=== PATIENT | male | born 1940 | race Caucasian/White ===

== ENCOUNTER → 2018-11-19 | Outpatient (CLI) | payer MEDICARE, OTHER ==
--- NOTE | 2018-11-19 14:27 | REP ---
Clinical: COPD with acute exacerbation. Technique: PA and lateral. Comparison: 07/04/2016. Findings: Mediastinum and cardiac silhouette are within normal limits and stable. Lung burton demonstrate diffuse chronic interstitial changes and scattered fibrosis. Subtle superimposed right lower lobe atelectasis/infiltrate cannot be excluded. No significant effusion. No pneumothorax. Skeletal structures intact. Impression: Chronic-appearing changes. Cannot exclude subtle superimposed right lower lobe atelectasis/early infiltrate. Electronically Signed by Morris Mora MD 11/19/2018 02:19 P
== END ==
LOC: M SMT 10:23
PROVIDERS: ATTEND Physician Assistant
DX: J44.1 Chronic obstructive pulmonary disease with (acute) exacerbation (principal)

== ENCOUNTER → 2019-01-08 | Outpatient (REF) | payer MEDICARE, OTHER ==
[2019-01-08 15:53] LABS: BASO # 0.1 10^3/uL (0.0-0.2); BASO % 0.6 % (0.0-1.0); EOS # 0.2 10^3/uL (0.0-0.50); EOS % 1.9 % (0.0-3.0); HEMATOCRIT 42.7 % (42.0-52.0); HEMOGLOBIN 13.8 g/dl (13.5-17.5); LYMPH # 1.5 10^3/uL (1.5-4.5); LYMPH % 13.2 % (24.0-44.0); MEAN CORPUSCULAR HEMOGLOBIN 36.5 pg (27.0-33.0); MEAN CORPUSCULAR HGB CONC 32.3 g/dl (32.0-36.5); MONO # 0.8 10^3/uL (0.0-0.8); MONO % 7.4 % (0.0-5.0); NEUTROPHILS # 8.3 10^3/uL (1.8-7.7); NEUTROPHILS % 75.6 % (36.0-66.0); PLATELET COUNT, AUTOMATED 464 10^3/uL (150-450); RED BLOOD COUNT 3.78 10^6/uL (4.30-6.10)
[2019-01-08 15:59] LABS: ALBUMIN 3.4 GM/DL (3.2-5.2); BILIRUBIN,TOTAL 0.5 MG/DL (0.2-1.0); C REACTIVE PROTEIN QUANTITATIV 7.19 MG/DL (0.00-0.30); CALCIUM LEVEL 9.6 MG/DL (8.8-10.2); CHOLESTEROL RISK RATIO 2.509 (<5); CREATININE FOR GFR 2.07 MG/DL (0.70-1.30); GLOMERULAR FILTRATION RATE 33.3 (>42); MAGNESIUM LEVEL 2.1 MG/DL (1.8-2.4); POTASSIUM SERUM 4.8 MEQ/L (3.5-5.1); TOTAL PROTEIN 7.2 GM/DL (6.4-8.2); URIC ACID 5.9 MG/DL (3.5-7.2)
[2019-01-08 16:07] LABS: PTH INTACT 86.8 PG/ML (18.5-88.0)
[2019-01-08 16:09] LABS: HEMOGLOBIN A1c 6.2 %
[2019-01-08 16:35] LABS: ERYTHROCYTE SEDIMENTATION RATE 81 mm/hr (0-20)
== END ==
LOC: M SFHCPLAZ 12:15
PROVIDERS: ATTEND Internal Medicine
DX: I12.9 Hypertensive chronic kidney disease with stage 1 through stage 4 chronic kidney disease, or unspecified chronic kidney disease (principal); M10.9 Gout, unspecified; E78.00 Pure hypercholesterolemia, unspecified; R73.01 Impaired fasting glucose; N18.3 Chronic kidney disease, stage 3 (moderate); D47.3 Essential (hemorrhagic) thrombocythemia; M06.9 Rheumatoid arthritis, unspecified
CPT/HCPCS: 36415; 80053; 80061; 83036; 83735; 83970; 84550; 85025; 85652; 86140; G0463

== ENCOUNTER → 2021-01-14 | Outpatient (CLI) | payer MEDICARE, OTHER ==
--- NOTE | 2021-01-14 16:16 | REPPI ---
INDICATION: R06.02 SOB R05 PRODUCTIVE COUGH COMPARISON: 11/19/2018, 07/04/2016. TECHNIQUE: PA/Lateral FINDINGS: Lungs: There is bibasilar interstitial fibrotic change which appears similar to the prior study. No consolidation is seen. Heart: Normal in size. Mediastinum: Mediastinal silhouette unremarkable. Pleural angles: There is a small right pleural effusion.. Bones and soft tissues: There are mild degenerative changes of the spine. There is a prosthetic heart valve. IMPRESSION: Stable chronic interstitial fibrosis. Small right pleural effusion. <Electronically signed by Gideon Hayden > 01/14/21 [id number]
== END ==
LOC: M PLAIMG 15:33
PROVIDERS: ATTEND Physician Assistant
DX: J90 Pleural effusion, not elsewhere classified (principal); R06.02 Shortness of breath; R05 Cough; Z95.2 Presence of prosthetic heart valve
CPT/HCPCS: 71046; G0463

== ENCOUNTER → 2021-02-25 | Outpatient (CLI) | payer MEDICARE, OTHER ==
--- NOTE | 2021-02-25 08:41 | REP ---
INDICATION: BAINS CHEST DISCOMFORT XRAY FIRST. COMPARISON: Multiple latest 01/14/2021 TECHNIQUE: PA and lateral FINDINGS: The cardiomediastinal silhouette is unchanged. Chronic bibasilar fibrotic changes are again noted. There is chronic bilateral CP angle blunting. There is a new patchy opacity in the left lung base seen best on the lateral view posteriorly. The osseous structures are stable. IMPRESSION: New lung base opacity as described above acute pneumonia superimposed upon chronic change cannot be ruled out. Follow-up is suggested. <Electronically signed by Marvin Ovalles > 02/25/21 [id number]
--- NOTE | 2021-02-25 09:44 | REP ---
INDICATION: BAINS CHEST DISCOMFORT XRAY FIRST. COMPARISON: Comparison is made with today's chest x-ray.. TECHNIQUE: 1.0 mCi of technetium 99m DTPA aerosol is utilized for the ventilation study and is followed by a 5.4 mCi dose of intravenous technetium 99m MAA for the perfusion study. A sequence of 8 planar images are acquired for each portion of the study. FINDINGS: There is very patchy distribution of ventilatory tracer with some central bronchial deposition present bilaterally, right more so than left. The this is consistent with COPD. There are multiple regions of poor ventilation. The perfusion study shows heterogeneous uptake as well. There are multiple matched perfusion ventilation defects including right upper lobe, lingular segment of the left upper lobe and posteriorly and superiorly on the left. No mismatch defect is seen. IMPRESSION: Very patchy radiotracer distribution on both ventilation and perfusion study consistent with advanced COPD. Multiple matched ventilation perfusion defects. No mismatched defect. Low to intermediate probability for pulmonary embolus. <Electronically signed by Sacha Meadows > 02/25/21 [id number]
== END ==
LOC: M RAD 07:42
PROVIDERS: ATTEND Internal Medicine Cardiovascular Disease
DX: R07.89 Other chest pain (principal); R06.00 Dyspnea, unspecified
CPT/HCPCS: 71046; 78582; A9540; A9567

== ENCOUNTER 2021-04-18 14:48 | Inpatient (IN) | payer MEDICARE, OTHER ==
[~2021-04-18] VITALS: Ht 180.3 cm; Wt 77.3 kg
[2021-04-18] MEDS ORDERED: OMEP40CA4 PO (16:06)
[2021-04-18] MEDS ORDERED: ASPI-226 PO (16:06)
[2021-04-18] MEDS ORDERED: ALLO100T PO (16:06)
[2021-04-18] MEDS ORDERED: ATOR1TAB21 PO (16:06)
[2021-04-18] MEDS ORDERED: CLOP75TA2 PO (16:06)
[2021-04-18] MEDS ORDERED: HYDR500C3 PO (16:06)
[2021-04-18] MEDS ORDERED: BREO1INH3 INH (16:06)
[2021-04-18] MEDS ORDERED: ALBU83IN NEB (16:06)
[2021-04-18] MEDS ORDERED: ACET650T61 PO (16:06)
[2021-04-18] MEDS ORDERED: TAMS1CAP17 PO (16:06)
[2021-04-18] MEDS ORDERED: SPIR1CAP INH (16:06)
--- NOTE | 2021-04-18 16:29 | REP ---
INDICATION: Altered Mental Status COMPARISON: None. TECHNIQUE: Axial noncontrast images from the skull base to the thoracic inlet with coronal reformations. This CT examination was performed using the following dose reduction techniques: Automated exposure control, adjustment of mA and/or kv according to the patient's size, and use of iterative reconstruction technique. FINDINGS: Atrophy with periventricular leukomalacia and microvascular ischemic changes are appreciated. There is an asymmetric 3.6 cm low-density area along the medial aspect of the left parieto-occipital lobe which is nonspecific. Differential diagnosis includes evolving encephalomalacia related to old infarction, subacute infarction, and less likely mass lesion. No significant associated vasogenic edema or mass effect noted. The ventricles and sulci are symmetric. Hayden-white differentiation is otherwise maintained. There is no evidence for acute intracranial hemorrhage. No extra-axial fluid collection. Calvarium is intact. Paranasal sinuses and mastoid air cells are clear. IMPRESSION: Asymmetric low-density area in the posterior medial left hemisphere as described above. Differential diagnosis includes evolving encephalomalacia related to old infarction, subacute infarction, and less likely mass. Correlation with physical examination is recommended. Consider noncontrast MRI for further investigation. <Electronically signed by Morris Mora > 04/18/21 [id number]
[2021-04-18 16:36] LABS: BASO % 0.6 % (0.0-1.0); EOS # 0.1 10^3/uL (0.0-0.5); HEMATOCRIT 34.6 % (42.0-52.0); HEMOGLOBIN 10.6 g/dl (13.5-17.5); LYMPH # 1.1 10^3/uL (1.5-5.0); LYMPH % 16.4 % (24.0-44.0); MEAN CORPUSCULAR HGB CONC 30.6 g/dl (32.0-36.5); MONO # 0.5 10^3/uL (0.0-0.8); MONO % 7.6 % (2.0-8.0); PLATELET COUNT, AUTOMATED 511 10^3/uL (150-450); RED BLOOD COUNT 3.53 10^6/uL (4.30-6.10); WHITE BLOOD COUNT 6.9 10^3/uL (4.0-10.0)
--- NOTE | 2021-04-18 16:38 | REP ---
INDICATION: ALTERED MENTAL STATUS COMPARISON: 02/25/2021 TECHNIQUE: PA and lateral. FINDINGS: Cardiac silhouette is normal evidence for prior aortic valve repair noted. Lung burton demonstrate chronic emphysematous changes with bibasilar scarring. Subtle superimposed lower lobe cannot be excluded. No pneumothorax. Skeletal structures are intact. Atelectasis IMPRESSION: Chronic appearing changes. Cannot exclude subtle superimposed basilar atelectasis. <Electronically signed by Morris Mora > 04/18/21 [id number]
[2021-04-18 17:05] LABS: ACETAMINOPHEN LEVEL < 2.0 UG/ML (10.0-30.0); ALBUMIN 2.8 GM/DL (3.2-5.2); ALT/SGPT 13 U/L (12-78); BILIRUBIN,DIRECT 0.1 MG/DL (0.0-0.2); BILIRUBIN,TOTAL 0.3 MG/DL (0.2-1.0); BLOOD UREA NITROGEN 31 MG/DL (7-18); CALCIUM LEVEL 8.9 MG/DL (8.8-10.2); CARBON DIOXIDE LEVEL 27 MEQ/L (21-32); CHLORIDE LEVEL 109 MEQ/L (98-107); CREATININE FOR GFR 1.79 MG/DL (0.70-1.30); ETHYL ALCOHOL (ETHANOL) < 0.003 % (0.000-0.010); GLOMERULAR FILTRATION RATE 39.2 (>42); GLUCOSE, FASTING 92 MG/DL (70-100); POTASSIUM SERUM 4.5 MEQ/L (3.5-5.1); SALICYLATE LEVEL < 1.7 MG/DL (5.0-30.0); SODIUM LEVEL 142 MEQ/L (136-145); TOTAL PROTEIN 6.6 GM/DL (6.4-8.2)
[2021-04-18 17:55] LABS: ERYTHROCYTE SEDIMENTATION RATE 61 mm/hr (0-20)
[2021-04-18] MEDS ORDERED: ACETAMINOPHEN TAB 650MG DOSE (2X325MG) PO PRN (18:00)
--- NOTE | 2021-04-18 18:32 | HPEPDOC ---
[facility] Medical History & Physical Date of Admission Apr 18, 2021 Date of Service: Apr 18, 2021 Primary Care Physician: Samm Andre Attending Physician: PRASANNA ZAVALA DO History and Physical CHIEF COMPLAINT: Visual loss HISTORY OF PRESENT ILLNESS: Patient is a 80-year-old male presented to emergency department after his vision went black yesterday. Patient states that yesterday his vision went black and he is having difficulty seeing. Patient states that this is been getting better. Patient states that his vision went black in both eyes. Patient was stating that he had been recently seen by the retinal specialist in [facility] and was diagnosed with macular dystrophy. Patient was hospitalized from 03/04/2021 to 03/14/2021 at [facility] in the beginning and middle part of February 2021. Patient was found to have group G strep bacteremia at that time. 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 Patient had an MRI performed while he was at [facility] which was reported to show multiple small acute/subacute infarcts supra and infratentorially and multiple vascular territories consistent with embolic phenomenon. Patient was treated with 6 weeks of ceftriaxone which ended on Sunday. Patient had his PICC line removed on Sunday. Patient states that he was otherwise doing well up until Sunday when the visual loss happened. Patient had recently stopped steroid eyedrops from an live games dealer in [facility]. Patient does not complain of any other neurologic symptoms at this time such as weakness, numbness, speech difficulties or word finding difficulties. Patient does not have any other complaints at this time. PAST MEDICAL HISTORY: 1. Rheumatoid arthritis. 2. Gout. 3. Gastroesophageal reflux disorder. 4. Hypertension 5. MICHELLE 6. COPD 7. Incisional hernia 8. Hypercholesterolemia 9. Chronic kidney disease stage III 10. Valvular heart disease 11. Thrombocytosis PAST SURGICAL HISTORY: 1. Bifemoral bypass in 2010. 2. Right cataract in 2016. 3. Left cataract in 2016. 4. TAVR at [facility] in 2019 SOCIAL HISTORY: Patient lives at home with his and used to work in the [employer]. Patient denies any smoking, or illicit drug use. Patient does occasionally use alcohol. FAMILY HISTORY: Father of unknown cause at age 59. Mother of breast cancer at age 68. ALLERGIES: Please see below. REVIEW OF SYSTEMS: General: Patient denies fevers HEENT: Patient reports a blackening of his vision which has improved. Patient denies headaches Cardiovascular: Patient denies chest pain Respiratory: Patient denies shortness of breath, cough GI: Patient denies abdominal pain, nausea, vomiting, diarrhea : Patient denies increased frequency or pain with urination Extremities: Patient denies swelling or pain in extremities Neurological: Patient denies numbness or tingling in legs Skin: Patient denies any new rashes or lesions. Hematologic: Patient denies any easy bruising. Lymphatic: Patient denies any lumps lumps or bumps in neck, axilla, or groin HOME MEDICATIONS: Please see below. PHYSICAL EXAMINATION: VITAL SIGNS: Temperature 98.5, pulse 90, respiratory rate 18, blood pressure 166/77, pulse oximetry 93% on room air. General: Alert and oriented male patient who was laying in bed when I walked in the room. Patient not appear to be in any acute distress. HEENT: Normocephalic, atraumatic, moist mucous membranes. Neck: No lymphadenopathy or thyromegaly Cardiac: Regular rate and rhythm, no murmurs, normal S1, normal S2 Pulm: Clear to auscultation bilaterally. No wheezes, rhonchi, rales Abd: Nondistended, nontender to palpation, normal bowel sounds Ext: No edema bilateral lower extremities Neuro: Patient is 5/5 strength in all myotomes of the upper and lower extremities bilaterally. Patient reports equal sensation to light touch in upper and lower extremity dermatomes tested. Cranial nerves III through XII intact bilaterally. [id number]-[id number] testing reveals the patient was slow to find the finger during the testing of the right visual hemisphere and was easily able to find finger during testing of the left visual hemisphere. Patient's proprioception and touching his nose was intact. Skin: Skin of the head, neck, upper and lower extremities, abdomen and back were examined not show any evidence of rash or wounds LABORATORY DATA: See below. IMAGING: Chest x-ray performed on 04/18/2021 is reported to show chronic. Changes. Cannot exclude subtle superimposed basilar atelectasis. CT of the head without contrast performed on 04/18/2021 was reported to show asymmetric low-density area in the posterior medial left hemisphere that measures 3.6 cm along the medial aspect of the left parietal occipital lobe which is nonspecific. Differential diagnosis includes evolving encephalomalacia related to old infarct, subacute infarction, and less likely mass lesion. No significant associated vasogenic edema or mass-effect noted. Correlation with physical exam is recommended. Consider noncontrast MRI for further investigation MICROBIOLOGY: Please see below. ASSESSMENT: 80-year-old male who presents the emergency department with visual loss with a CT finding of a 3.6 cm mass in the posterior parietal/occipital lobe who was recently found to have embolic strokes at [facility] who will be admitted to the hospital for further work-up for CVA. . PLAN: 1. Visual loss. This is concerning for a CVA. Patient has been seen by ophthalmology and retinal specialist in the recent past. Patient was diagnosed with macular dystrophy according the patient's . In review of the patient's notes from [facility] (on the patient's paper chart) he had embolic phenomenon to the brain in the middle of February. This was thought to be secondary to endocarditis which was not able to be visualized on REYES as the working theory by [facility]'s infectious disease provider was that the patient had showered the brain with emboli from the vegetation. I spoke with Dr. Owens who will see the patient tomorrow. MRI of the brain has been ordered. ESR has been ordered. Every 4 neurochecks have been ordered. Patient is on aspirin and Plavix. PT and OT have also been ordered. 2. Recent group G strep bacteremia. Patient finished his course of ceftriaxone on 04/15/2021 and had his PICC line removed. Blood cultures have been ordered. Patient does not have a leukocytosis at this time. 3. Hypertension. At this time, we will hold antihypertensive medications to allow permissive hypertension due to the possible CVA. We will continue to monitor the patient's blood pressure closely. 4. COPD. Patient does not appear to be in exacerbation at this time. Continue home medications. 5. Hyperlipidemia. Continue patient's home medications. 6. Cerebrovascular disease. Continue aspirin and Plavix. 7. Carotid artery stenosis. Patient is at ultrasound of the carotid performed at [facility] showed occlusion of the left internal carotid artery. They recommended CT angiogram of the neck however, patient has chronic kidney disease and was unable to get this done. Patient states he will be following up with his immunopathologist. 8. Chronic kidney disease stage III. Creatinine is at baseline. Avoid nephrotoxic agents and continue to monitor. 9. DVT prophylaxis: Teds and sequentials 10. CODE STATUS: Full code Disposition: Patient will be admitted to medical surgical floor with telemetry. Patient expected to stay at least 2 midnights. Vital Signs Vital Signs Date Time Temp Pulse Resp B/P (MAP) Pulse Ox O2 Delivery O2 Flow Rate FiO2 04/18/21 16:35 166/77 (106) 04/18/21 16:33 103 04/18/21 16:18 93 04/18/21 14:49 98.5 18 Room Air Laboratory Data Labs 24H Laboratory Tests 2 04/18/21 16:21: Immature Granulocyte % (Auto) 0.4, Neutrophils (%) (Auto) 73.0H, Lymphocytes (%) (Auto) 16.4L, Monocytes (%) (Auto) 7.6, Eosinophils (%) (Auto) 2.0, Basophils (%) (Auto) 0.6, Neutrophils # (Auto) 5.0, Lymphocytes # (Auto) 1.1L, Monocytes # (Auto) 0.5, Eosinophils # (Auto) 0.1, Basophils # (Auto) 0.0, Nucleated Red Blood Cells % (auto) 0.0, Erythrocyte Sedimentation Rate 61H, Anion Gap 6L, Glomerular Filtration Rate 39.2L, Calcium Level 8.9, Total Bilirubin 0.3, Direct Bilirubin 0.1, Aspartate Amino Transf (AST/SGOT) 13, Alanine Aminotransferase (ALT/SGPT) 13, Alkaline Phosphatase 96, Ammonia 13, Total Protein 6.6, Albumin 2.8L, Albumin/Globulin Ratio 0.7, Thyroid Stimulating Hormone (TSH) 1.050, Salicylates Level < 1.7L, Acetaminophen Level < 2.0L, Ethyl Alcohol Level < 0.00 3 CBC/BMP Laboratory Tests 04/18/21 16:21 Home Medications Scheduled Acetaminophen (Tylenol Arthritis) 650 Mg Tablet.er, 650 MG PO Q8H Tiotropium [place] (Spiriva) 18 Mcg Cap.w.dev, 1 CAP INH DAILY Scheduled PRN Albuterol Sulf (Albuterol Sulfate) 2.5 Mg/3 Ml Vial.neb, 1 VIAL NEB Q4HP PRN for wheezing Miscellaneous Medications Allopurinol (Allopurinol) 100 Mg Tablet Aspirin (Aspirin EC) 81 Mg Tablet. Atorvastatin Calcium (Atorvastatin Calcium) 20 Mg Tablet Clopidogrel Bisulfate (Clopidogrel) 75 Mg Tablet Fluticasone/Vilanterol (Breo Ellipta 200-25 Mcg INH) 1 Each Blst.w.dev Hydroxyurea (Hydroxyurea) 500 Mg Capsule Omeprazole (Omeprazole) 40 Mg Capsule. Tamsulosin Hcl (Tamsulosin HCl) 0.4 Mg Capsule Allergies Coded Allergies: ether (Verified Allergy, Unknown, 04/18/21) shellfish derived (Verified Allergy, Unknown, 04/18/21) A-FIB/CHADSVASC A-FIB History Current/History of A-Fib/PAF?: No PRASANNA ZAVALA DO Apr 18, 2021 18:32
[2021-04-18 18:56] LABS: RSV AMPLIFICATION NEGATIVE (NEGATIVE)
[2021-04-18] MEDS ORDERED: PREDOPD OD (19:13)
[2021-04-18] MEDS ORDERED: HOME MED LIST COMPLETE! XX SCH (19:35)
--- NOTE | 2021-04-18 20:13 | REPVR ---
PROCEDURE INFORMATION: Exam: MR Head Without Contrast Exam date and time: 04/18/2021 7:50 PM Age: 80 years old Clinical indication: Visual disturbance; Additional info: CVA TECHNIQUE: Imaging protocol: MR of the head without contrast. COMPARISON: CT Head without contrast 04/18/2021 4:03 PM FINDINGS: Brain: Acute infarct in the left occipital lobe measuring 4.4 x 3.2 cm. Acute infarct in the left thalamus measuring 1 x 0.7 cm. Cerebral ventricles: Normal. No ventriculomegaly. Bones/joints: Unremarkable. Paranasal sinuses: Normal as visualized. No acute sinusitis. Mastoid air cells: Normal as visualized. No mastoid effusion. Orbital cavity: Bilateral cataract surgery. Soft tissues: Unremarkable. IMPRESSION: Acute infarct in the left occipital lobe measuring 4.4 x 3.2 cm. Acute infarct in the left thalamus measuring 1 x 0.7 cm. Electronically signed by: Apollo Castellon On 04/18/2021 20:13:30 PM
[2021-04-18 21:00] VITALS: BP 157/83
--- NOTE | 2021-04-18 21:44 | ECGEPIP ---
[facility] - ED Test Date: 2021-04-18 Pat Name: BIN WILKES Department: Room: - Gender: Male [employer] Instructor: MELVIN : 1940 Requested By: JUAN CHAKRABORTY Order Number: [id number] Reading MD: Matt Hsu Measurements Intervals Mccracken Rate: 88 P: 36 HI: 140 QRS: -30 QRSD: 134 T: 156 QT: 400 QTc: 484 Interpretive Statements Normal sinus rhythm Left axis deviation Left bundle branch block NO PRIORS FOR COMPARISON Electronically Signed on 04-18-2021 21:43:43 EDT by Matt Hsu
[2021-04-19 05:43] LABS: HEMATOCRIT 31.5 % (42.0-52.0); HEMOGLOBIN 9.9 g/dl (13.5-17.5); MEAN CORPUSCULAR HEMOGLOBIN 29.9 pg (27.0-33.0); MEAN CORPUSCULAR HGB CONC 31.4 g/dl (32.0-36.5); MEAN CORPUSCULAR VOLUME 95.2 fl (80.0-96.0); PLATELET COUNT, AUTOMATED 461 10^3/uL (150-450); RED BLOOD COUNT 3.31 10^6/uL (4.30-6.10); WHITE BLOOD COUNT 7.1 10^3/uL (4.0-10.0)
[2021-04-19 06:00] VITALS: BP 147/75
[2021-04-19 06:05] LABS: CALCIUM LEVEL 8.1 MG/DL (8.8-10.2); CREATININE FOR GFR 1.76 MG/DL (0.70-1.30); MAGNESIUM LEVEL 2.1 MG/DL (1.8-2.4); POTASSIUM SERUM 4.5 MEQ/L (3.5-5.1)
[2021-04-19] MEDS: TIOTROPIUM INHALER/CAPSULE (SPIRIVA) INH SCH (08:00)
[2021-04-19] MEDS: CLOPIDOGREL 75 MG TAB PO SCH (08:08)
[2021-04-19] MEDS: ASPIRIN 81MG ENTERIC TABLET PO SCH (08:08)
[2021-04-19] MEDS: OMEPRAZOLE 20 MG CAP PO SCH (08:08)
[2021-04-19] MEDS: allopurinoL 100 MG TAB PO SCH (08:09)
[2021-04-19] MEDS: HYDROXYUREA 500 MG CAP PO SCH (08:22)
[2021-04-19 08:38] LABS: C REACTIVE PROTEIN QUANTITATIV 3.67 MG/DL (0.00-0.30)
[2021-04-19] MEDS: ADVAIR HFA 230/21MCG INHALER INH SCH ×2 (09:06→19:31)
[2021-04-19 14:00] VITALS: BP 136/67
--- NOTE | 2021-04-19 18:07 | IPNPDOC ---
Subjective Date Seen The patient was seen on 04/19/21. Subjective Chief Complaint/HPI Mr. Jones is a 80 year old male with history of CVA, recent group G strep bacteremia completed antibiotics, and carotid artery stenosis who presents with vision loss. This morning, he feels that his vision has improved, but not yet at baseline. Still hazy at the edges. Otherwise denies chest pain or dyspnea. Objective Physical Examination General Exam: Positive: Alert, Cooperative Eye Exam: Negative: Sclera icteric Neck Exam: Positive: Supple Chest Exam: Positive: Clear to auscultation Heart Exam: Positive: Rate Normal, Regular Rhythm Abdomen Exam: Positive: Normal bowel sounds, Soft; Negative: Tenderness Neuro Exam: Positive: Normal Speech Psych Exam: Positive: Mental status NL, Mood NL Assessment /Plan Assessment Mr. Jones is a 80 year old male with history of CVA, recent group G strep ba cteremia completed antibiotics, and carotid artery stenosis who presents with vision loss. Vision has improved, but not at baseline. MRI head demonstrates acute infarct of the left occipital and left thalamus. Will order Echocardiogram and MRA of the head and carotids. Unable to do contrast for CT angiogram. Plan/VTE VTE Prophylaxis Ordered?: Yes Plan 1. Acute left CVA with vision loss -Recently had embolic phenomenon in middle of February at dawn -Suspected endocarditis, but not visualized on REYES. Patient completed antibiotic course on 04/15/21 -Will order echocardiogram with bubble study, MRA of the head and carotids as patient cannot do CT angio due to renal function -Discussed case with neurology. Continue with atorvastatink, aspirin, and Plavix. Concern for place in the vertebral or basilar due to location of stroke -Monitor telemetry for atrial fibrillation. May explain why recent CVA 2. Hypertension -Hold antihypertensives to allow for permissive hypertension -Will need at least 48 hours of permissive hypertension 3. COPD -Stable, not in acute exacerbation -Continue inhalers 4. Carotid artery stenosis -At [facility], carotid demonstrated left ICA occlusion. Unable to obtain CT angio due to renal function. Will order MRA instead 5. CKD stage 3 -Creatinine at baseline -Avoid nephrotoxic agents 6. DVT ppx -SCD and TEDs Disposition: Pending imaging results and 48 hours of permissive hypertension. VS, I&O, 24H, Fishbone Vital Signs/I&O Vital Signs Date Time Temp Pulse Resp B/P (MAP) Pulse Ox O2 Delivery O2 Flow Rate FiO2 04/19/21 14:00 98.2 18 18 136/67 (90) 96 Room Air I&O- Last 24 Hours up to 6 AM 04/19/21 06:00 Intake Total 280 ml Output Total 500 ml Balance -220 ml Laboratory Data 24H LABS Laboratory Tests 2 04/19/21 05:27: Nucleated Red Blood Cells % (auto) 0.0, Anion Gap 5L, Glomerular Filtration Rate 40.0L, Calcium Level 8.1L, Magnesium Level 2.1, C-Reactive Protein, Quantitative 3.67H CBC/BMP Laboratory Tests 04/19/21 05:27 Microbiology Microbiology 04/18/21 Blood Culture, Received Pending 04/18/21 Blood Culture, Received Pending JB DWYER DO Apr 19, 2021 18:06
[2021-04-19] MEDS: ATORVASTATIN 20 MG TAB PO SCH (20:14)
[2021-04-19 22:00] VITALS: BP 120/84
--- NOTE | 2021-04-19 23:27 | REPVR ---
PROCEDURE INFORMATION: Exam: MRA Head Without Contrast; Arteriography Exam date and time: 04/19/2021 10:58 PM Age: 80 years old Clinical indication: Abnormal findings; Abnormal mri of head; Additional info: CVA. Unable to do contrast due to renal function TECHNIQUE: Imaging protocol: Magnetic resonance angiography head without contrast. Exam focused on the arteries. COMPARISON: 1. MRI-Brain without Contrast 2021-04-18 19:[address] Head without contrast 2021-04-18 16:03 FINDINGS: ANTERIOR CIRCULATION: Right internal carotid artery: Mild right ICA atherosclerotic irregularity and narrowing. Right middle cerebral artery: No occlusion or significant stenosis. No aneurysm. Right anterior cerebral artery: Tiny anterior communicating artery. Left internal carotid artery: Occluded left ICA, absent flow within the left cervical and skull base segments with reconstitution of the very distal supraclinoid ICA. Left middle cerebral artery: Mild left MCA atherosclerotic narrowing. Left anterior cerebral artery: No occlusion or significant stenosis. No aneurysm. POSTERIOR CIRCULATION: Right vertebral artery: No occlusion or significant stenosis. No aneurysm. Left vertebral artery: No occlusion or significant stenosis. No aneurysm. Basilar artery: No occlusion or significant stenosis. No aneurysm. Right posterior cerebral artery: No occlusion or significant stenosis. No aneurysm. Left posterior cerebral artery: Small left posterior communicating artery. IMPRESSION: 1. Occluded left ICA, absent flow within the left cervical and skull base segments with reconstitution of the very distal supraclinoid ICA. 2. Small left posterior communicating artery. Tiny anterior communicating artery. Electronically signed by: Jomar López On 04/19/2021 23:27:57 PM
--- NOTE | 2021-04-19 23:32 | REPVR ---
PROCEDURE INFORMATION: Exam: MRA Neck Without Contrast Exam date and time: 04/19/2021 10:58 PM Age: 80 years old Clinical indication: Abnormal findings; Abnormal mri of head; Additional info: CVA. Unable to do contrast for cta neck. TECHNIQUE: Imaging protocol: Magnetic resonance angiography of the neck without contrast. COMPARISON: 1. MRA BRAIN WO 2021-04-19 19:21 2. MRI-Brain without Contrast 2021-04-18 19:21 FINDINGS: Limitations: Study is limited by the absence of contrast. Right common carotid artery: No stenosis. No dissection or occlusion. Right internal carotid artery: Question mild right ICA distal narrowing versus skull base artifact is a me Right external carotid artery: No stenosis. No dissection or occlusion of the origin. Right vertebral artery: Diminished flow related signal in the right vertebral artery with absent flow in the right V1 and V2 segments, question severely stenotic and or occluded. Reconstitution of the right V3 vertebral artery segment. Left common carotid artery: No stenosis. No dissection or occlusion. Left internal carotid artery: Occluded left ICA from its origin throughout the left neck and into the skull base. Left external carotid artery: No stenosis. No dissection or occlusion of the origin. Left vertebral artery: No stenosis. No dissection or occlusion. IMPRESSION: 1. Occluded left ICA from its origin throughout the left neck and into the skull base. 2. Diminished flow related signal in the right vertebral artery with absent flow in the right V1 and V2 segments, question severely stenotic and or occluded. Reconstitution of the right V3 vertebral artery segment. REFERENCES: NASCET CRITERIA. The degree of internal carotid artery stenosis is based on NASCET criteria. Normal is no stenosis. Mild is less than 50% stenosis. Moderate is 50-69% stenosis. Severe is 70% to 99% stenosis. Total occlusion is no detectable patent lumen. Electronically signed by: Jomar López On 04/19/2021 23:33:01 PM
--- NOTE | 2021-04-20 01:22 | IPNPDOC ---
Text Note Date of Service Significant event NOTE Asked by nursing staff to update patient's given her repeated requests. Patient's informed regarding the MRI has been completed with confirmation of acute infarct (aka stroke) and current plan for maximizing medical management, neurological monitoring, echo in a.m. and further recommendations will be per neurology. Patient's requesting update as soon as further results are in tomorrow. She was advised regarding unable to give exact time when colleagues will be able to update her and attempt made to manage expectations on timing of updates. At present, unable to determine when patient can go home as of now, but patient has been working with physical therapy and will opt for case management to ensure home assistance is set up if needed. Patient's Annabel can be reached at [phone]. Annabel was informed if any acute changes tonightshe will be notified. VS,Fishbone, I+O VS, Fishbone, I+O Laboratory Tests 04/19/21 05:27 Vital Signs Date Time Temp Pulse Resp B/P (MAP) Pulse Ox O2 Delivery O2 Flow Rate FiO2 04/19/21 14:00 98.2 18 18 136/67 (90) 96 Room Air I&O- Last 24 Hours up to 6 AM 04/20/21 06:00 Intake Total 540 ml Output Total 400 ml Balance 140 ml KADEN HENDRIX NP Apr 20, 2021 00:36
[2021-04-20 06:00] VITALS: BP 126/80
[2021-04-20 06:23] LABS: HEMATOCRIT 32.9 % (42.0-52.0); HEMOGLOBIN 10.4 g/dl (13.5-17.5); MEAN CORPUSCULAR HEMOGLOBIN 30.1 pg (27.0-33.0); MEAN CORPUSCULAR HGB CONC 31.6 g/dl (32.0-36.5); MEAN CORPUSCULAR VOLUME 95.4 fl (80.0-96.0); PLATELET COUNT, AUTOMATED 512 10^3/uL (150-450); RED BLOOD COUNT 3.45 10^6/uL (4.30-6.10); WHITE BLOOD COUNT 7.8 10^3/uL (4.0-10.0)
[2021-04-20 06:53] LABS: CALCIUM LEVEL 8.9 MG/DL (8.8-10.2); CHOLESTEROL RISK RATIO 2.369 (<5); CREATININE FOR GFR 1.78 MG/DL (0.70-1.30); GLOMERULAR FILTRATION RATE 39.4 (>42); MAGNESIUM LEVEL 2.2 MG/DL (1.8-2.4); POTASSIUM SERUM 4.1 MEQ/L (3.5-5.1)
[2021-04-20 06:57] LABS: HEMOGLOBIN A1c 5.7 %
[2021-04-20] MEDS: TIOTROPIUM INHALER/CAPSULE (SPIRIVA) INH SCH (07:34)
[2021-04-20] MEDS: ADVAIR HFA 230/21MCG INHALER INH SCH ×2 (07:34→20:22)
[2021-04-20] MEDS: ASPIRIN 81MG ENTERIC TABLET PO SCH (08:53)
[2021-04-20] MEDS: allopurinoL 100 MG TAB PO SCH (08:53)
[2021-04-20] MEDS: CLOPIDOGREL 75 MG TAB PO SCH (08:53)
[2021-04-20] MEDS: OMEPRAZOLE 20 MG CAP PO SCH (08:53)
[2021-04-20] MEDS: HYDROXYUREA 500 MG CAP PO SCH (08:54)
--- NOTE | 2021-04-20 09:29 | CR ---
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 The patient states that he is on aspirin after that stroke. He was also placed on Plavix 75 mg daily. The patient was noted to have significant carotid stenosis. He had bilateral cardioembolic strokes thought to be due to endocarditis. He was treated with six weeks of Ceftriaxone. He presents to [facility] with symptoms of vision loss. He states that on Sunday he started to develop loss of vision, darkness in his vision in both eyes. The symptoms were still present on Sunday so he came to the hospital. Head CT revealed possible subacute left sided stroke. The patient was confirmed on MRI to have a left occipital and left thalamic acute ischemic stroke. He remains on aspirin 81 mg daily, Plavix 75 mg daily. The patient states that his symptoms are improving although on physical exam visual field testing does confirm that the patient does have ongoing difficulty with seeing out of the right side of both eyes. The patient denies any weakness or numbness or headache, slurred speech or aphasia at this time. The patient states he has no chest pain or shortness of breath. He is eating well and sleeping well. He is ambulating cautiously. PAST MEDICAL HISTORY: Rheumatoid arthritis, gout, gastroesophageal reflux disease, hypertension, obstructive sleep apnea, COPD, incisional hernia, hypercholesterolemia, chronic kidney disease Stage III, valvular heart disease, thrombocytosis, ischemic strokes, cardioembolic in nature, endocarditis. PAST SURGICAL HISTORY: Bifemoral bypass in 2010, right cataract in 2016, left cataract in 2017, TAVR at [facility] in 2019. FAMILY HISTORY: Noncontributory. SOCIAL HISTORY: Patient denies use of any tobacco, alcohol or illicit drugs. REVIEW OF SYSTEMS: A 14 point review of systems is negative except as per HPI. PHYSICAL EXAMINATION: Blood pressure is 120/84, pulse rate is 85, respiratory rate is 18, temperature is 98.3 degrees Fahrenheit, oxygenation is 96% on room air. Patient is oriented to person, place and time. Speech, comprehension, and repetition are intact. Pupils are 3 mm and round. Extraocular movements are intact. There is no facial weakness. Tongue is midline. Hearing is equal to finger rub. There is no loss of sensation to light touch in the face, arm or leg. There is no aphasia. There is no dysarthria. The patient does have right sided homonymous hemianopsia in both eyes. There is no pronator drift. Strength is 5/5 in bilateral deltoid, biceps, triceps, hand marine insulator, iliopsoas, quadriceps, anterior tibialis. Deep tendon reflexes are 2+ at the patella, reduced at the Achilles, 2+ in the upper extremities. Sensory is intact to light touch in all four extremities. There is no ataxia or dysmetria. Finger to nose testing is normal. Romberg testing and gait deferred. ASSESSMENT: 1. A 80-year-old male with recent cardioembolic stroke secondary to endocarditis in February 2021 with new symptoms of right sided homonymous hemianopsia with acute left occipital and left thalamic strokes. PLAN: 1. Continue aspirin 81 mg daily, Plavix 75 mg daily, continue statin therapy, MRI, carotid artery without contrast was recommended showing occluded left ICU from its origin throughout the left neck and into the skull base, diminished flow related signal in the right vertebral artery with absent flow in the right V1, V2 segments, severely stenotic and/or occluded segments noted, constitution of right V3 vertebral artery segment noted. Stroke source may be vessel to vessel given posterior circulation right vertebral artery occlusion, emboli could have traveled from vertebral artery through the vascular artery to the left RADIO COMMUNICATION COORDINATOR artery. The MR angiogram of the brain revealed occluded left ICA absent flow within left cervical skull base segment and reconstitution of very distal supraclinoid ICA, small left posterior communicating artery, tiny anterior communicating artery was noted. 2. PT/OT, rehab evaluation, recommend ophthalmic evaluation for complete visual field testing as an outpatient. 3. Follow-up echocardiogram with a bubble study. 4. Patient can follow-up with Vascular Surgery, Cardiology and Neurology as an outpatient as scheduled.
--- NOTE | 2021-04-20 12:49 | IPNPDOC ---
Subjective Date Seen The patient was seen on 04/20/21. Subjective Chief Complaint/HPI Mr. Jones is a 80 year old male with history of CVA, recent group G strep bacteremia completed antibiotics, and carotid artery stenosis who presents with vision loss. No significant arrhythmias on telemetry overnight. This morning, patient feels well. Denies chest pain or dyspnea. Patient's vision has improved. I spoke with neurology, Dr. Owens. Recommends the echocardiogram to look for embolic or vegetation. If echocardiogram is negative, can continue with aspirin and Plavix. Otherwise, I called the and updated her. She has concerns about patient's ambulation. They have a planned trip in about a week for [place] trip [place] the river. It is his life's dream, and he feels that if he does not go now, he will never have the chance again. Objective Physical Examination General Exam: Positive: Alert, Cooperative Eye Exam: Negative: Sclera icteric Neck Exam: Positive: Supple Chest Exam: Positive: Clear to auscultation Heart Exam: Positive: Rate Normal, Regular Rhythm Abdomen Exam: Positive: Normal bowel sounds, Soft Neuro Exam: Positive: Normal Speech Psych Exam: Positive: Mental status NL, Mood NL Assessment /Plan Assessment Mr. Jones is a 80 year old male with history of CVA, recent group G strep bacteremia completed antibiotics, and carotid artery stenosis who presents with vision loss. Vision has improved, but not at baseline. MRI head demonstrates acute infarct of the left occipital and left thalamus. MRA head only demonstrated left ICA stenosis. MRA carotids demonstrated left ICA stenosis and right vertebral artery stenosis. HbA1c 5.7 and LDL 42. Otherwise, pending echocardiogram. Spoke with neurology. Will need to know the echocardiogram results. If echocardiogram is negative, can continue with DAPT. If positive, will need to adjust his medications. Plan/VTE VTE Prophylaxis Ordered?: Yes Plan 1. Acute left CVA with vision loss -Recently had embolic phenomenon in middle of February at [place] -Suspected endocarditis, but not visualized on REYES. Patient completed antibiotic course on 04/15/21 -MRA demonstrated L carotid artery stenosis and R basilar stenosis -Echocardiogram ordered and pending results -Telemetry negative for atrial fibrillation -HbA1c 5.7 and LDL 42 -Continue with aspirin and Plavix 2. Hypertension -Hold antihypertensives to allow for permissive hypertension -Will need at least 48 hours of permissive hypertension 3. COPD -Stable, not in acute exacerbation -Continue inhalers 4. Carotid artery stenosis -At [facility], carotid demonstrated left ICA occlusion. Unable to obtain CT angio due to renal function. Will order MRA instead -MRA demonstrated left carotid artery stenosis 5. CKD stage 3 -Creatinine at baseline -Avoid nephrotoxic agents 6. DVT ppx -SCD and TEDs Disposition: Pending echocardiogram results. Patient may need rehab vs home with services VS, I&O, 24H, Fishbone Vital Signs/I&O Vital Signs Date Time Temp Pulse Resp B/P (MAP) Pulse Ox O2 Delivery O2 Flow Rate FiO2 04/20/21 06:00 98.3 90 18 126/80 (95) 94 Room Air I&O- Last 24 Hours up to 6 AM 04/20/21 05:59 Intake Total 660 ml Output Total 975 ml Balance -315 ml Laboratory Data 24H LABS Laboratory Tests 2 04/20/21 05:38: Nucleated Red Blood Cells % (auto) 0.0, Anion Gap 4L, Glomerular Filtration Rate 39.4L, Estimated Mean Plasma Glucose 117H, Hemoglobin A1c 5.7, Calcium Level 8.9, Magnesium Level 2.2, Triglycerides Level 103, Total Cholesterol 109, LDL Cholesterol 42, Non-HDL Cholesterol (LDL + VLDL) 63, Total HDL Cholesterol 46, Cholesterol/HDL Ratio 2.369 CBC/BMP Laboratory Tests 04/20/21 05:38 Microbiology Microbiology 04/18/21 Blood Culture - Preliminary, Resulted No growth after 24 hours . All specim... 04/18/21 Blood Culture - Preliminary, Resulted No growth after 24 hours . All specim... JB DWYER DO Apr 20, 2021 12:49
[2021-04-20 14:00] VITALS: BP 111/71
[2021-04-20] MEDS: ATORVASTATIN 20 MG TAB PO SCH (20:01)
[2021-04-20 22:00] VITALS: BP 147/78
[2021-04-21] MEDS: NYSTATIN 100,000 UNITS/GM TOPICAL PWD 15 GM TOP SCH ×2 (01:25→10:00)
[2021-04-21 06:00] VITALS: BP 130/64
[2021-04-21 06:28] LABS: HEMATOCRIT 31.8 % (42.0-52.0); HEMOGLOBIN 9.9 g/dl (13.5-17.5); MEAN CORPUSCULAR HEMOGLOBIN 30.2 pg (27.0-33.0); MEAN CORPUSCULAR HGB CONC 31.1 g/dl (32.0-36.5); PLATELET COUNT, AUTOMATED 480 10^3/uL (150-450); RED BLOOD COUNT 3.28 10^6/uL (4.30-6.10); WHITE BLOOD COUNT 6.8 10^3/uL (4.0-10.0)
[2021-04-21 06:50] LABS: CALCIUM LEVEL 8.3 MG/DL (8.8-10.2); CREATININE FOR GFR 1.82 MG/DL (0.70-1.30); GLOMERULAR FILTRATION RATE 38.4 (>42); MAGNESIUM LEVEL 2.3 MG/DL (1.8-2.4); POTASSIUM SERUM 4.3 MEQ/L (3.5-5.1)
[2021-04-21] MEDS: ADVAIR HFA 230/21MCG INHALER INH SCH (07:43)
[2021-04-21] MEDS: TIOTROPIUM INHALER/CAPSULE (SPIRIVA) INH SCH (07:43)
[2021-04-21] MEDS: OMEPRAZOLE 20 MG CAP PO SCH (09:58)
[2021-04-21] MEDS: CLOPIDOGREL 75 MG TAB PO SCH (09:58)
[2021-04-21] MEDS: ASPIRIN 81MG ENTERIC TABLET PO SCH (09:58)
[2021-04-21] MEDS: HYDROXYUREA 500 MG CAP PO SCH (09:59)
[2021-04-21] MEDS: allopurinoL 100 MG TAB PO SCH (10:00)
[2021-04-21 14:00] VITALS: BP 122/61
--- NOTE | 2021-04-21 15:33 | ECHO ---
ECHOCARDIOGRAM DATE OF PROCEDURE: 04/20/2021 Age: Gender: Height: 180 cm Weight: 77 kg REFERRING PHYSICIAN: Dr. Kin Mccray. INDICATION: Stroke. MEASUREMENTS: IVS 1.1 cm LV 5.0 cm LVPW 1.1 cm LA 3.7 cm Aorta 3.5 cm Mitral E wave velocity 102 A wave 144 E prime septal 4.7 E prime lateral 5.2 FINDINGS: This study is of acceptable technical quality. The patient is in sinus rhythm with wide QRS complex. Left ventricle is normal size. There is global hypokinesis that is most pronounced in the septum, most likely a consequence of conductive system disease. Overall left ventricle ejection fraction estimated in the neighborhood of 30 to 35%. There is a 26 mm BAILEY valve in aortic position. It was poorly visualized but seems to be well seated. I cannot comment much on its structure. There are very prominent degenerative abnormalities of the mitral valve with prominent mitral annular calcifications and thickening of mitral leaflets. Mobility seems to be maybe marginally reduced. Tricuspid valve appears normal. Pulmonic valve was not seen. No pericardial effusion was noted. Inferior vena cava was not visualized. Aortic root is normal. Doppler interrogation of the aortic valve reveals mean gradient 11 mmHg and no insufficiency. There is approximately moderate mitral insufficiency and trace tricuspid insufficiency. Calculated pulmonary artery pressure is in the high 20s assuming normal central venous pressure corresponding to normal values. Mitral inflow pattern and tissue Doppler imaging of mitral annulus revealed grade 1 diastolic dysfunction. Injection of agitated saline through peripheral vein failed to reveal any evidence of intracardiac shunt. CONCLUSIONS: 1. Study is of acceptable technical quality. Underlying sinus rhythm with wide QRS complex. 2. Normal LV size with global hypokinesis, septal almost dyskinesis, and overall estimated LVEF approximately 30 to 35%. Grade 1 diastolic dysfunction. 3. 26 mm BAILEY 3 TAVR in aortic position with normal function. 4. Very prominent degenerative abnormalities of mitral valve with approximately moderate mitral insufficiency. 5. Unable to estimate central venous pressure. 6. Probably normal pulmonary artery pressure. 7. Negative "bubble study."
--- NOTE | 2021-04-21 23:34 | DS.PDOC ---
Discharge Summary General Date of Admission Apr 18, 2021 at 17:58 Date of Discharge Apr 21, 2021 Specialist/Consultants Involve Neurology, Dr. Owens Discharge Summary PROCEDURES PERFORMED DURING STAY: None ADMITTING DIAGNOSES: 1. Acute left occipital and left thalamus CVA with vision loss 2. Hypertension 3. COPD 4. Hyperlipidemia 5. Carotid artery stenosis 6. CKD stage 3 7. Chronic HFrEF DISCHARGE DIAGNOSES: 1. Acute left occipital and left thalamus CVA with vision loss 2. Hypertension 3. COPD 4. Hyperlipidemia 5. Carotid artery stenosis 6. CKD stage 3 7. Chronic HFrEF COMPLICATIONS/CHIEF COMPLAINT: CVA. HISTORY OF PRESENT ILLNESS: Copied from admitting provider's H&P " Patient is a 80-year-old male presented to emergency department after his vision went black yesterday. Patient states that yesterday his vision went black and he is having difficulty seeing. Patient states that this is been getting better. Patient states that his vision went black in both eyes. Patient was stating that he had been recently seen by the retinal specialist in [facility] and was diagnosed with macular dystrophy. Patient was hospitalized from 03/04/2021 to 03/14/2021 at [facility] in the beginning and middle part of February 2021. Patient was found to have group G strep bacteremia at that time. Source was unable to be identified however, according to an infectious disease note from [facility], patient may have had endocarditis of his TAVR and may have sent septic emboli to the brain causing a stroke. Patient had an MRI performed while he was at [facility] which was reported to show multiple small acute/subacute infarcts supra and infratentorially and multiple vascular territories consistent with embolic phenomenon. Patient was treated with 6 weeks of ceftriaxone which ended on Sunday. Patient had his PICC line removed on Sunday. Patient states that he was otherwise doing well up until Sunday when the visual loss happened. Patient had recently stopped steroid eyedrops from an potato chip processing supervisor in [facility]. Patient does not complain of any other neurologic symptoms at this time such as weakness, numbness, speech difficulties or word finding difficulties. Patient does not have any other complaints at this time. " HOSPITAL COURSE: Patient was found to have an acute left occipital and left thalamus CVA. Neurology, Dr. Owens was consulted. Stroke worked up demonstrated right vertebral artery stenosis. It is possible for an embolic to travel from the vertebral artery to the left side. Recommended continuing with aspirin and Plavix. Due to the location of the stroke, his right eye would not be able to see beyond midline. Recommended official outpatient field of view testing. Physical therapy worked with patient's vision and recommended vision therapy. Another consideration is cardioembolic causes of CVA. No events on telemetry. Echocardiogram was obtained. Dr. Frances read the echocardiogram. No signs thrombus or vegetation and bubble study was negative. Dr. Frances recommended event monitor since he had two strokes in such a short period of time. The event monitor will have to be set up through their office. Otherwise, he was concerned about patient's drop in EF to 30 to 35%. He would like to see the patient in his office. Today, patient felt well and felt ready for home. We talked about rehab vs home with home PT. Patient did not want rehab, but wanted home. He was subsequently discharged home. DISCHARGE MEDICATIONS: Please see below. ALLERGIES: Please see below. PHYSICAL EXAMINATION ON DISCHARGE: VITAL SIGNS: Please see below. GENERAL: Comfortable, in no apparent distress HEENT: Head normocephalic, atraumatic NECK: Supple CARDIOVASCULAR EXAMINATION: Regular rate and rhythm RESPIRATORY EXAMINATION: Lungs clear to auscultation bilaterally ABDOMINAL EXAMINATION: Soft, non-tender, normal bowel sounds PSYCHIATRIC EXAMINATION: Normal mood and affect LABORATORY DATA: Please see below. IMAGING: Radiologist interpretation MRI brain Acute infarct in the left occipital lobe measuring 4.4 x 3.2 cm. Acute infarct in the left thalamus measuring 1 x 0.7 cm. MRA head 1. Occluded left ICA, absent flow within the left cervical and skull base segments with reconstitution of the very distal supraclinoid ICA. 2. Small left posterior communicating artery. Tiny anterior communicating artery. MRA neck 1. Occluded left ICA from its origin throughout the left neck and into the skull base. 2. Diminished flow related signal in the right vertebral artery with absent flow in the right V1 and V2 segments, question severely stenotic and or occluded. Reconstitution of the right V3 vertebral artery segment. PROGNOSIS: Good ACTIVITY: As tolerated. DIET: As tolerated DISCHARGE PLAN: Home DISPOSITION: Home Health Service. DISCHARGE INSTRUCTIONS: 1. Follow up with PCP in 1 week 2. Follow up with cardiology, Dr. Frances, in 1 to 2 week 3. Follow up with neurology, Dr. Owens, in 1 to 2 weeks 4. Referral to vascular surgery for left ICA stenosis 5. Referral to ophthalmology for ocular stroke. Patient will need field of view testing. Patient will also need vision therapy DISCHARGE CONDITION: Stable Total time spent on discharge planning, discharge summary, and medication herlinda nciliation: 65 minutes Vital Signs/I&Os Vital Signs Date Time Temp Pulse Resp B/P (MAP) Pulse Ox O2 Delivery O2 Flow Rate FiO2 04/21/21 14:00 97.4 86 17 122/61 (81) 100 Room Air I&O- Last 24 Hours up to 6 AM 04/21/21 06:00 Intake Total 680 ml Output Total 575 ml Balance 105 ml Laboratory Data Labs 24H Laboratory Tests 2 04/21/21 05:54: Nucleated Red Blood Cells % (auto) 0.0, Anion Gap 3L, Glomerular Filtration Rate 38.4L, Calcium Level 8.3L, Magnesium Level 2.3 CBC/BMP Laboratory Tests 04/21/21 05:54 Microbiology Microbiology 04/18/21 Blood Culture - Preliminary, Resulted No Growth after 72 hours. All specime... 04/18/21 Blood Culture - Preliminary, Resulted No Growth after 72 hours. All specime... Discharge Medications Scheduled Acetaminophen (Tylenol Arthritis) 650 Mg Tablet.er, 650 MG PO Q8H, (Reported) Allopurinol (Allopurinol) 100 Mg Tablet, 100 MG PO DAILY, (Reported) Aspirin (Aspirin EC) 81 Mg Tablet.dr, 81 MG PO DAILY, (Reported) Atorvastatin Calcium (Atorvastatin Calcium) 20 Mg Tablet, 20 MG PO DAILY, ( Reported) Clopidogrel Bisulfate (Clopidogrel) 75 Mg Tablet, 75 MG PO DAILY, (Reported) Fluticasone/Vilanterol (Breo Ellipta 200-25 Mcg INH) 1 Each Blst.w.dev, 1 PUFF INH DAILY, (Reported) Hydroxyurea (Hydroxyurea) 500 Mg Capsule, 500 MG PO DAILY, (Reported) Omeprazole (Omeprazole) 40 Mg Capsule.dr, 40 MG PO DAILY, (Reported) Tamsulosin Hcl (Tamsulosin HCl) 0.4 Mg Capsule, 0.4 MG PO DAILY, (Reported) Tiotropium [place] (Spiriva) 18 Mcg Cap.w.dev, 1 CAP INH DAILY, (Reported) Scheduled PRN Albuterol Sulf (Albuterol Sulfate) 2.5 Mg/3 Ml Vial.neb, 1 VIAL NEB Q4HP PRN for wheezing, (Reported) Allergies Coded Allergies: ether (Verified Allergy, Unknown, 04/18/21) shellfish derived (Verified Allergy, Unknown, 04/18/21) JB DWYER DO Apr 21, 2021 23:34
== END 2021-04-21 16:52 | disposition home health service (06) | DRG 65 ==
LOC: M ED 14:48 → M ED INP 17:58 → ENRESERV 19:23 → M MSPAV 20:42
PROVIDERS: ADMIT Family Medicine; ATTEND Internal Medicine
DX: I63.9 Cerebral infarction, unspecified (principal); I50.22 Chronic systolic (congestive) heart failure; I38 Endocarditis, valve unspecified; I13.0 Hypertensive heart and chronic kidney disease with heart failure and stage 1 through stage 4 chronic kidney disease, or unspecified chronic kidney disease; M06.9 Rheumatoid arthritis, unspecified; M10.9 Gout, unspecified; K21.9 Gastro-esophageal reflux disease without esophagitis; E78.00 Pure hypercholesterolemia, unspecified; N18.30 Chronic kidney disease, stage 3 unspecified; H54.3 Unqualified visual loss, both eyes; Z98.41 Cataract extraction status, right eye; Z98.42 Cataract extraction status, left eye; D47.3 Essential (hemorrhagic) thrombocythemia; K43.2 Incisional hernia without obstruction or gangrene; Z79.82 Long term (current) use of aspirin; Z79.01 Long term (current) use of anticoagulants; Z79.899 Other long term (current) drug therapy; I65.29 Occlusion and stenosis of unspecified carotid artery; Z20.822 Contact with and (suspected) exposure to COVID-19; Z91.013 Allergy to seafood; Z91.09 Other allergy status, other than to drugs and biological substances

== ENCOUNTER → 2021-09-06 | Outpatient (CLI) | payer MEDICARE, OTHER ==
[~2021-09-06] MED LIST: ACET650T61 PO; ALBU83IN NEB; ALLO100T PO; ASPI-226 PO; ATOR1TAB21 PO; BREO1INH3 INH; CLOP75TA2 PO; HYDR500C3 PO; OMEP40CA4 PO; PREDOPD OD; SPIR1CAP INH; TAMS1CAP17 PO
[2021-09-06 15:20] LABS: BASO % 0.2 % (0.0-1.0); EOS % 0.3 % (0.0-3.0); HEMOGLOBIN 10.7 g/dl (13.5-17.5); LYMPH # 0.5 10^3/uL (1.5-5.0); LYMPH % 5.6 % (24.0-44.0); MEAN CORPUSCULAR HGB CONC 30.6 g/dl (32.0-36.5); MEAN CORPUSCULAR VOLUME 101.4 fl (80.0-96.0); MONO # 0.2 10^3/uL (0.0-0.8); MONO % 1.9 % (2.0-8.0); NEUTROPHILS # 8.1 10^3/uL (1.5-8.5); NEUTROPHILS % 91.3 % (36.0-66.0); PLATELET COUNT, AUTOMATED 334 10^3/uL (150-450); RED BLOOD COUNT 3.45 10^6/uL (4.30-6.10); WHITE BLOOD COUNT 8.8 10^3/uL (4.0-10.0)
[2021-09-06 15:43] LABS: ERYTHROCYTE SEDIMENTATION RATE 34 mm/hr (0-20)
[2021-09-06 19:35] LABS: ALBUMIN 3.2 GM/DL (3.2-5.2); BILIRUBIN,TOTAL 0.4 MG/DL (0.2-1.0); C REACTIVE PROTEIN QUANTITATIV 2.15 MG/DL (0.00-0.30); CALCIUM LEVEL 8.8 MG/DL (8.8-10.2); CHOLESTEROL RISK RATIO 1.589 (<5); CREATININE FOR GFR 2.17 MG/DL (0.70-1.30); GLOMERULAR FILTRATION RATE 31.3 (>35); MAGNESIUM LEVEL 2.3 MG/DL (1.8-2.4); POTASSIUM SERUM 4.6 MEQ/L (3.5-5.1); TOTAL PROTEIN 6.3 GM/DL (6.4-8.2); URIC ACID 7.7 MG/DL (3.5-7.2)
[2021-09-07 03:11] LABS: HEMOGLOBIN A1c 5.9 %
== END ==
LOC: M PLALAB 13:51
PROVIDERS: ATTEND Internal Medicine
DX: R73.01 Impaired fasting glucose (principal); N18.32 Chronic kidney disease, stage 3b; I12.9 Hypertensive chronic kidney disease with stage 1 through stage 4 chronic kidney disease, or unspecified chronic kidney disease; D47.3 Essential (hemorrhagic) thrombocythemia; M06.9 Rheumatoid arthritis, unspecified; E78.00 Pure hypercholesterolemia, unspecified

== ENCOUNTER → 2022-03-29 | Outpatient (REF) | payer MEDICARE, OTHER ==
[~2022-03-29] MED LIST changes: +ALBU2.5V10 NEB; -ALBU83IN NEB
[2022-03-29 16:44] LABS: BASO % 0.5 % (0.0-1.0); EOS # 0.4 10^3/uL (0.0-0.5); EOS % 7.6 % (0.0-3.0); HEMATOCRIT 29.6 % (42.0-52.0); HEMOGLOBIN 9.2 g/dl (13.5-17.5); LYMPH # 0.7 10^3/uL (1.5-5.0); LYMPH % 11.4 % (24.0-44.0); MEAN CORPUSCULAR HEMOGLOBIN 35.2 pg (27.0-33.0); MEAN CORPUSCULAR HGB CONC 31.1 g/dl (32.0-36.5); MEAN CORPUSCULAR VOLUME 113.4 fl (80.0-96.0); MONO # 0.5 10^3/uL (0.0-0.8); MONO % 9.3 % (2.0-8.0); NEUTROPHILS % 70.8 % (36.0-66.0); PLATELET COUNT, AUTOMATED 556 10^3/uL (150-450); RED BLOOD COUNT 2.61 10^6/uL (4.30-6.10); WHITE BLOOD COUNT 5.7 10^3/uL (4.0-10.0)
[2022-03-29 17:14] LABS: ERYTHROCYTE SEDIMENTATION RATE 102 mm/hr (0-20)
[2022-03-29 18:57] LABS: ALBUMIN 2.7 GM/DL (3.2-5.2); BILIRUBIN,TOTAL 0.3 MG/DL (0.2-1.0); C REACTIVE PROTEIN QUANTITATIV 10.9 MG/DL (0.00-0.30); CALCIUM LEVEL 8.8 MG/DL (8.8-10.2); CREATININE FOR GFR 2.03 MG/DL (0.70-1.30); GLOMERULAR FILTRATION RATE 33.8 (>35); TOTAL PROTEIN 6.1 GM/DL (6.4-8.2); URIC ACID 6.3 MG/DL (3.5-7.2)
== END ==
LOC: M SFHCRHEU 14:43
PROVIDERS: ATTEND Internal Medicine Rheumatology
DX: M05.79 Rheumatoid arthritis with rheumatoid factor of multiple sites without organ or systems involvement (principal); R76.8 Other specified abnormal immunological findings in serum; M15.9 Polyosteoarthritis, unspecified; M1A.39X0 Chronic gout due to renal impairment, multiple sites, without tophus (tophi); Z79.899 Other long term (current) drug therapy

== ENCOUNTER → 2022-05-11 | Outpatient (CLI) | payer MEDICARE, OTHER ==
[2022-05-11 15:29] LABS: BASO % 0.3 % (0.0-1.0); EOS # 0.1 10^3/uL (0.0-0.5); HEMATOCRIT 32.4 % (42.0-52.0); HEMOGLOBIN 10.1 g/dl (13.5-17.5); LYMPH # 0.7 10^3/uL (1.5-5.0); LYMPH % 11.1 % (24.0-44.0); MEAN CORPUSCULAR HEMOGLOBIN 34.5 pg (27.0-33.0); MEAN CORPUSCULAR HGB CONC 31.2 g/dl (32.0-36.5); MEAN CORPUSCULAR VOLUME 110.6 fl (80.0-96.0); MONO # 0.4 10^3/uL (0.0-0.8); MONO % 5.4 % (2.0-8.0); NEUTROPHILS # 5.2 10^3/uL (1.5-8.5); NEUTROPHILS % 80.6 % (36.0-66.0); PLATELET COUNT, AUTOMATED 354 10^3/uL (150-450); RED BLOOD COUNT 2.93 10^6/uL (4.30-6.10); WHITE BLOOD COUNT 6.5 10^3/uL (4.0-10.0)
[2022-05-11 16:18] LABS: ALBUMIN 3.5 GM/DL (3.2-5.2); BILIRUBIN,TOTAL 0.4 MG/DL (0.2-1.0); CALCIUM LEVEL 9.3 MG/DL (8.8-10.2); CREATININE FOR GFR 2.11 MG/DL (0.70-1.30); FREE T4 1.16 NG/DL (0.76-1.46); GLOMERULAR FILTRATION RATE 32.3 (>35); PERCENT SATURATION 9.1 % (19.7-50.0); POTASSIUM SERUM 4.5 MEQ/L (3.5-5.1); THYROID STIMULATING HORMONE 1.4 uIU/ML (0.358-3.740); TOTAL PROTEIN 6.7 GM/DL (6.4-8.2)
== END ==
LOC: M PLALAB 13:41
PROVIDERS: ATTEND Internal Medicine Hematology
DX: D47.3 Essential (hemorrhagic) thrombocythemia (principal); Z79.899 Other long term (current) drug therapy

== ENCOUNTER → 2022-05-11 | Outpatient (CLI) | payer MEDICARE, OTHER ==
[2022-05-11 15:27] LABS: BASO % 0.2 % (0.0-1.0); EOS # 0.1 10^3/uL (0.0-0.5); EOS % 1.7 % (0.0-3.0); HEMATOCRIT 32.7 % (42.0-52.0); HEMOGLOBIN 10.1 g/dl (13.5-17.5); LYMPH # 0.7 10^3/uL (1.5-5.0); LYMPH % 11.4 % (24.0-44.0); MEAN CORPUSCULAR HEMOGLOBIN 34.7 pg (27.0-33.0); MEAN CORPUSCULAR HGB CONC 30.9 g/dl (32.0-36.5); MEAN CORPUSCULAR VOLUME 112.4 fl (80.0-96.0); MONO # 0.3 10^3/uL (0.0-0.8); NEUTROPHILS # 5.2 10^3/uL (1.5-8.5); NEUTROPHILS % 81.2 % (36.0-66.0); PLATELET COUNT, AUTOMATED 343 10^3/uL (150-450); RED BLOOD COUNT 2.91 10^6/uL (4.30-6.10); WHITE BLOOD COUNT 6.4 10^3/uL (4.0-10.0)
[2022-05-11 16:18] LABS: ALBUMIN 3.5 GM/DL (3.2-5.2); BILIRUBIN,TOTAL 0.5 MG/DL (0.2-1.0); C REACTIVE PROTEIN QUANTITATIV 3.51 MG/DL (0.00-0.30); CALCIUM LEVEL 9.2 MG/DL (8.8-10.2); CREATININE FOR GFR 2.19 MG/DL (0.70-1.30); POTASSIUM SERUM 4.6 MEQ/L (3.5-5.1); TOTAL PROTEIN 6.6 GM/DL (6.4-8.2); URIC ACID 7.5 MG/DL (3.5-7.2)
[2022-05-11 16:36] LABS: ERYTHROCYTE SEDIMENTATION RATE 50 mm/hr (0-20)
== END ==
LOC: M PLAIMG 12:23
PROVIDERS: ATTEND Internal Medicine Rheumatology
DX: M1A.39X0 Chronic gout due to renal impairment, multiple sites, without tophus (tophi) (principal); M05.79 Rheumatoid arthritis with rheumatoid factor of multiple sites without organ or systems involvement; R76.8 Other specified abnormal immunological findings in serum; M15.9 Polyosteoarthritis, unspecified; Z79.899 Other long term (current) drug therapy; R06.02 Shortness of breath

== ENCOUNTER → 2022-07-10 | Outpatient (CLI) | payer MEDICARE, OTHER | LOC: M PLARAD 10:31 | DX: R91.8 Other nonspecific abnormal finding of lung field (principal) | CPT/HCPCS: 78815; A9552 ==

== ENCOUNTER → 2022-10-23 | Outpatient (CLI) | payer MEDICARE, OTHER ==
[~2022-10-23] MED LIST changes: +CENT1TAB2 PO; +FLUT1BLS8 INH; +HOME MED LIST COMPLETE! XX SCH; +LIDOCAINE 1% MDV 20ML VIAL As Ordered ONE; +METH2.5T48 PO; +PANT40TA29 PO; +TREL1AER PO
[2022-10-23 12:05] VITALS: BP 164/74
== END ==
LOC: M IRPRO 08:06
PROVIDERS: ATTEND Internal Medicine Pulmonary Disease
DX: R59.9 Enlarged lymph nodes, unspecified (principal); R91.8 Other nonspecific abnormal finding of lung field; J95.811 Postprocedural pneumothorax

== ENCOUNTER → 2022-12-06 | Outpatient (REF) | payer MEDICARE, OTHER ==
[~2022-12-06] MED LIST changes: -HOME MED LIST COMPLETE! XX SCH; -LIDOCAINE 1% MDV 20ML VIAL As Ordered ONE
[2022-12-06 12:23] LABS: BASO % 0.3 % (0.0-1.0); EOS # 0.1 10^3/uL (0.0-0.5); EOS % 2.8 % (0.0-3.0); HEMATOCRIT 28.3 % (42.0-52.0); HEMOGLOBIN 8.5 g/dl (13.5-17.5); LYMPH # 0.4 10^3/uL (1.5-5.0); LYMPH % 12.1 % (24.0-44.0); MEAN CORPUSCULAR HEMOGLOBIN 31.3 pg (27.0-33.0); MONO # 0.1 10^3/uL (0.0-0.8); NEUTROPHILS # 2.6 10^3/uL (1.5-8.5); NEUTROPHILS % 80.2 % (36.0-66.0); PLATELET COUNT, AUTOMATED 353 10^3/uL (150-450); RED BLOOD COUNT 2.72 10^6/uL (4.30-6.10); WHITE BLOOD COUNT 3.2 10^3/uL (4.0-10.0)
[2022-12-06 12:24] LABS: HEMATOCRIT 28.4 % (42.0-52.0)
[2022-12-06 12:39] LABS: ERYTHROCYTE SEDIMENTATION RATE 29 mm/hr (0-20)
[2022-12-06 12:57] LABS: PERCENT SATURATION 6.6 % (19.7-50.0)
[2022-12-06 12:58] LABS: ALBUMIN 3.1 G/DL (3.2-5.2); ALKALINE PHOSPHATASE 77 U/L (46-116); ALT/SGPT 16 U/L (7.0-40); AST/SGOT < 8 U/L (<34); BILIRUBIN,TOTAL 0.4 MG/DL (0.3-1.2); BLOOD UREA NITROGEN 43 MG/DL (9-23); CALCIUM LEVEL 8.9 MG/DL (8.3-10.6); CARBON DIOXIDE LEVEL 23 MMOL/L (20-31); CHLORIDE LEVEL 111 MMOL/L (98-107); CREATININE FOR GFR 2.44 MG/DL (0.70-1.30); GLOMERULAR FILTRATION RATE 27.3 (>35); GLUCOSE, FASTING 88 MG/DL (74-106); POTASSIUM SERUM 4.8 MMOL/L (3.5-5.1); SODIUM LEVEL 140 MMOL/L (136-145); TOTAL PROTEIN 5.5 G/DL (5.7-8.2)
[2022-12-06 12:59] LABS: FERRITIN 24.8 NG/ML (10.5-307.3)
[2022-12-06 13:00] LABS: FREE T4 1.33 NG/DL (0.89-1.76); THYROID STIMULATING HORMONE 1.874 uIU/ML (0.55-4.78)
== END ==
LOC: M SFHCPLAZ 09:08
PROVIDERS: ATTEND Internal Medicine Hematology
DX: D64.89 Other specified anemias (principal); D47.3 Essential (hemorrhagic) thrombocythemia; Z79.899 Other long term (current) drug therapy